=== PATIENT | female | born 1955 | race Caucasian/White ===

== ENCOUNTER 2017-11-20 07:00 | Day surgery (SDC) | payer BC, SELFPAY ==
[2017-11-17 11:07] LABS: Absolute Lymphocytes (CBC) 1.8 K/uL (0.7-4.9); Absolute Monocytes 0.6 K/uL (0.1-1.3); Absolute Neutrophil 3.9 K/uL (1.8-8.0); Basophils % 1.2 % (0-1.3); Eosinophils % 2.7 % (0-4.4); Hematocrit 39.9 % (36.0-45.0); Lymphocytes % 27.3 % (15.3-44.8); MCH 30.3 pg (27.0-35.0); MPV 7.9 fL (7.6-11.3); Monocytes % 9.6 % (3.3-12.3); RBC Red Blood Cell Count 4.43 M/uL (3.86-4.86)
[2017-11-17 11:13] LABS: Protime INR 1.13
[2017-11-17 11:26] LABS: Potassium 3.4 mEq/L (3.6-5.0)
--- NOTE | 2017-11-17 11:27 | RAD REPORT ---
EXAM DESCRIPTION: RAD - Chest Pa And Lat (2 Views) - 11/17/2017 10:31 am CLINICAL HISTORY: Coronary artery disease. COMPARISON: 06/20/2016 FINDINGS: The lungs are clear. The heart is mildly enlarged in size. No displaced fractures. Right a xillary kashif dissection clips. IMPRESSION: Mild cardiomegaly.
[2017-11-20] MEDS ORDERED: NA CHLORIDE 0.9% 500 ML ONE (08:39)
[2017-11-20] MEDS ORDERED: FENTANYL CITR 100 MCG/2 ML ONE (09:20)
[2017-11-20] MEDS ORDERED: MIDAZOLAM HCL 2 MG/2 ML INJ ONE ×2 (09:20→09:33)
[2017-11-20] MEDS ORDERED: ATROPINE SULF 1 MG/10 ML SYR IV ONE (09:20)
[2017-11-20] MEDS ORDERED: NA CHLORIDE 0.9% 0 ML ONE (09:20)
[2017-11-20 11:56] VITALS: O2SAT 98
[2017-11-20 14:06] VITALS: BP 122/60; TEMP 98.7
--- NOTE | 2017-11-20 19:58 | OP ---
Surgeon: Ayush Watson MD Procedures: Left heart catheterization, coronary and left ventricular angiography. Findings: The patient's coronary arteries are completely normal. Her left ventricular ejection frac tion is 30-35%. The left ventricle is dilated. Left ventricular end-diastolic pressure elevated at 25 mmHg. All the findings are consistent with a nonischemic cardiomyopathy, and our plan will be to continue medical therapy for congestive heart failure and have her get a defibrillator. Procedure In Detail: The patient was brought to the cardiac labor relations worker in a fasting state sedated with Versed and fentanyl. Right femoral approach was used as both breasts have been removed. Both arms were considered poor candidates for radial artery access. She was prepared and draped in the usual s terile fashion. Right femoral artery was identified with palpation. Tissues above the artery were a nesthetized with 1% lidocaine. The artery was entered using an 18-gauge needle. We used a 0.035 inc h diameter guidewire, modified Seldinger technique to put a 4-Emirati sheath. We used this to angiogr am left coronary with a JL-4, right coronary with a 3DRC, left ventricle with an angled pigtail. The re were no complications from the procedure. At the end of the procedure, an angiogram was done of t he right femoral artery. We made a decision to close the arteriotomy using a StarClose device. This was done successfully. Estimated Blood Loss: 10 cc. Design Editor: Jennie Gold. SONAM/ALLY Voice ID: [id number] Report ID: [id number]
== END 2017-11-20 13:55 | disposition home or self-care (01) ==
LOC: CCL 07:00
PROVIDERS: ATTEND Internal Medicine
PROC: 4A023N7 Measurement of Cardiac Sampling and Pressure, Left Heart, Percutaneous Approach (ICD-10-PCS; principal; 2017-11-20)
PROC: B201YZZ Plain Radiography of Multiple Coronary Arteries using Other Contrast (ICD-10-PCS; 2017-11-20)
PROC: B205YZZ Plain Radiography of Left Heart using Other Contrast (ICD-10-PCS; 2017-11-20)
DX: I42.8 Other cardiomyopathies (principal); I50.9 Heart failure, unspecified; I10 Essential (primary) hypertension; E78.2 Mixed hyperlipidemia; Z85.3 Personal history of malignant neoplasm of breast
CPT/HCPCS: 36415; 71046; 80048; 85025; 85610; 85730; 93458; C1893; J0583; J2250; J3010

== ENCOUNTER 2018-09-28 15:10 | Emergency (ER) | payer OTHER, SELFPAY ==
--- OUTSIDE RECORDS SUMMARY | 2018-09-28 15:15 | XMS REPORT | Continuity of Care Document ---
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/19 [place] [address] [place] WEAKNESS Active 05/27/[address] CVA Active 05/27/[address] LIFE FLIGHT Active 05/27/[address] Cellulitis Resolved Problem 05/31/2014 [facility] Brain tumor Resolved Problem 09/05/2018 [facility] Breast ca Resolved Problem 09/05/2018 [facility] Cerebral infarct Active Problem 09/05/2018 [facility] HTN (<span Resolved Problem 09/05/2018 [facility] ID="[id number]"> Medical Confirmed</span>) [place] HTN - Active Problem 09/05/2018 Hypertension [place] Hyperlipemia Resolved Problem 09/05/2018 [facility] Hyperlipidemia Active Problem 09/05/2018 [facility] Breast cancer Active Problem 09/05/2018 [facility] Mastectomy Resolved Problem 09/05/2018 [facility] Simple obesity Active Problem 09/05/2018 [facility] MALAISE AND Active [facility] Medications Medication Details Route Status Patient Ordering Order Source Instructions Provider Date Benicar 20 mg, 1 tab, No Longer [facility] Route: PO, Active 014 Medical Drug form: [place] TAB, Daily, Dosing Weight 89.091, kg, Start date: 05/29/14 9:00:00, Duration: 30 day, Stop date: 06/27/14 9:00:00 24 HR 25 mg, 1 tab, No Longer [facility] Metoprolol Route: PO, Active 014 Medical Tartrate 25 MG Drug form: [place] Extended ERTAB, Daily, Release Tablet Start date: [Toprol] 05/29/14 9:00:00, Duration: 30 day, Stop date: 06/27/14 9:00:00Notes: (Same as: Toprol XL) Do Not Crush exemestane 25 mg, 1 tab, No Longer [facility] Route: PO, Active 014 Medical Drug form: Center TAB, After Breakfast, Dosing Weight 88.636, kg, Start date: 05/29/14 8:50:00, Duration: 30 day, Stop date: 06/28/14 8:30:00Notes: (Same as: Aromasin) CHEMOTHERAPY Lipitor 40 mg, 1 tab, Inactive [facility] Route: PO, 014 Medical Drug form: Center TAB, Bedtime, Dosing Weight 89.091, kg, Start date: 05/28/14 21:00:00, Duration: 30 day, Stop date: 06/26/14 21:00:00Notes: (Same as: Lipitor) atorvastatin 40 mg=1 tab, Active [place] 40 mg oral PO, Bedtime, # 014 Medical tablet 90 tab, 3 Center Refill(s) Aspirin 81 MG 81 mg=1 tab, Active [facility] PO, Daily, # 014 Medical Tablet 100 tab, 2 Center Refill(s) heparin, 5,000 unit, 1 Inactive [facility] porcine mL, Route: 014 Medical SUB-Q, Drug Center form: INJ, Q8H, Dosing Weight 89.091, kg, Start date: 05/28/14 16:00:00, Duration: 30 day, Stop date: 06/27/14 8:00:00Notes: porcine heparin aspirin 81 mg, 1 tab, Inactive [facility] Route: PO, 014 Medical Drug form: Center ECTAB, Daily, Dosing Weight 89.091, kg, Priority: NOW, Start date: 05/28/14 10:51:00, Duration: 30 day, Stop date: 06/27/14 9:00:00Notes: Do not crush or chew. (Same As: Ecotrin) venlafaxine 37.5 mg, 1 Inactive [facility] tab, Route: 014 Medical PO, Drug form: Center TAB, Daily, Dosing Weight 88.636, kg, Start date: 05/28/14 9:00:00, Duration: 30 day, Stop date: 06/26/14 9:00:00Notes: (Same As: Effexor) Benicar 20 mg, 1 tab, Inactive [facility] Route: PO, 014 Medical Drug form: Center TAB, Daily, Dosing Weight 88.636, kg, Start date: 05/28/14 9:00:00, Duration: 30 day, Stop date: 06/26/14 9:00:00 24 HR 25 mg, 1 tab, Inactive [facility] Metoprolol Route: PO, 014 Medical Tartrate 25 MG Drug form: [place] Extended ERTAB, Daily, Release Tablet Start date: [Toprol] 05/28/14 9:00:00, Duration: 30 day, Stop date: 06/26/14 9:00:00Notes: (Same as: Toprol XL) Do Not Crush Saline Flush 10 ml, Route: Inactive [facility] 0.9% IVP, Drug 014 Medical Form: INJ, Center Dosing Weight 88.636, kg, Q12H, Start date: 05/28/14 9:00:00, Duration: 30 day, Stop date: 06/26/14 21:00:00Notes: (Same as: BD Posiflush) venlafaxine 37.5 mg=1 tab, Active [facility] 37.5 mg oral PO, Daily, 0 014 Medical tablet Refill(s) [place] Pravastatin 20 mg=1 tab, Inactive [facility] Sodium 20 MG PO, Daily, 0 014 Medical Oral Tablet Refill(s) [place] [Pravachol] 24 HR 25 mg=1 tab, Active [facility] Metoprolol PO, Daily, 0 014 Medical Tartrate 25 MG Refill(s) [place] Extended Release Tablet [Toprol] Olmesartan 20 mg=1 tab, Active [facility] medoxomil 20 PO, Daily, 0 014 Medical MG Oral Tablet Refill(s) [place] [Benicar] exemestane 25 25 mg=1 tab, Active [facility] mg oral tablet PO, Daily, 0 014 Medical Refill(s) Center Saline Flush 10 ml, Route: Inactive [facility] 0.9% IVP, Drug 014 Medical Form: INJ, Center Dosing Weight 88.636, kg, PRN, PRN Line Flush, Start date: 05/28/14 0:00:00, Duration: 30 day, Stop date: 06/26/14 23:59:00Notes: (Same as: BD Posiflush) Labetalol 10 mg, 2 mL, Inactive [facility] Route: IVP, 014 Medical Drug form: Center INJ, Q10Min, Dosing Weight 88.636, kg, PRN Hypertension, For SBP > 150mmHg, Start date: 05/28/14 0:00:00, Duration: 30 day, Stop date: 06/26/14 23:59:00 Iohexol 85 mL, Route: Inactive [facility] IVP, Drug 014 Medical Form: SOLN, Center Dosing Weight 88.636, kg, ONCALL, STAT, Start date: 05/27/14 21:28:00, Duration: 1 doses or times, Dose=2.2ml/kg, Max [id number] -- "To be infused by Radiology Staff ONLY"Special Instructions: Dose=2.2ml/kg, Max [id number] -- "To be infused by Radiology Staff ONLY" Saline Flush 10 mL, Route: No Longer [facility] 0.9% IVP, Drug Active 014 Medical Form: INJ, Center Dosing Weight 88.636, kg, PRN, PRN Line Flush, Start date: 05/27/14 20:05:00, Duration: 30 day, Stop date: 06/26/14 20:04:00Notes: (Same as: BD Posiflush) Allergies, Adverse Reactions, Alerts Substance Category Reaction Severity Reaction Status Date Comments Source type Reported Immunizations Immunization Date Given Site Status Last Updated Comments Source Results Order Name Results Value Reference Date Interpretation Comments Source Range HEMATOLOGY INR 1.08 0.85 - 03/04 1.17 [place] HEMATOLOGY PT 13.8 s 12.0 - / 14.7 [place] HEMATOLOGY PTT 29.3 s 22.9 - 03/ 35.8 [place] Biopsy bone Biopsy bone Patient Name: HERNAN TORRES DEEP 09/03 - [facility] : 1955; Age: 62 years Female MR: [id number] Read by: Daniel Bajwa MD Dictated Date/time: 09/03/18 11:43 Electronically Signed by: Daniel Bajwa MD 09/03/18 11:48 FINAL REPORT PROCEDURE: 1. CT-guided deep bone biopsy of the right ilium 2. Moderate sedation CLINICAL INFORMATION: History of breast cancer and skull metastasis, multiple spine and pelvic lesions COMPARISON: Magnetic resonance imaging spine on 08/28/2018 CONSENT: The procedure, risks, benefits and alternatives were discussed with the patient and written informed consent was obtained. A "time out" was performed per protocol prior to the procedure. TECHNIQUE: CT imaging performed at this location utilizes radiation dose optimization techniques which include one or more of the following: -Automated exposure control -Adjustment of the mA and/or kV according to patient size -Use of iterative reconstruction technique -Radiation dose: 527.02 mGy-cm calciner operator helper: Dr. Bajwa Preoperative diagnosis: History of breast cancer and skull metastasis, multiple spine and pelvic lesions Postoperative diagnosis: Same Estimated blood loss: Minimal Moderate sedation: I supervised moderate sedation during this procedure. The patient was continuously monitored by a nurse using automated blood pressure , electrocardiogram, and pulse oximetry. The mod erate sedation record is permanently stored in the hospital information system. The personal supervised moderate sedation time was 11 minutes. Medications administered: Versed 2 mg IV and Fentanyl 100 mcg IV. The patient was placed in a prone position on the CT table. Preprocedure CT was used to demarcate the right ilium. The right gluteal region was prepped and draped with sterile technique and the skin was anesthetized with 1% lidocaine. Under CT guidance, an 11-gauge bone biopsy needle was advanced into the right ilium. A 2 cm core was obtained. Again under CT guidance, an 11-gauge bone biopsy needle was advanced into the right ilium. A 2 cm core was again obtained. The needles were removed and sterile dressing applied. Postprocedure imaging demonstrated no immediate complication. Patient tolerated the procedure well and transferred to the recovery room in stable condition. IMPRESSION: Successful CT-guided deep bone biopsy of the right ilium. Upon review of the MRI spine from 08/28/2018, multiple lesions were noted within the thoracolumbar spine as well as within the pelvis. The right ilium was specifically chosen given the degree of involvement and minimal risk. SL: [id number] LIPIDS LDL 119 mg/dL <=99 mg/dL 05/28 (Calculated) [facility] LIPIDS VLDL 56 05/28 [facility] LIPIDS Chol 202 mg/dL <=199 05/28 mg/dL [facility] LIPIDS HDL 27 mg/dL >=61 mg/dL 05/28 [facility] LIPIDS Trig 278 mg/dL <=149 05/28 mg/dL [facility] LIPIDS CHD Risk 7.48 3.90 - 05/28 5.80 [facility] SPECIAL Hgb A1C 6.7 % <=5.6 % 05/28 [facility] CHEMISTRY [facility] HEMATOLOGY WBC 5.7 K/CMM 3.7 - 10.4 05/28 [facility] HEMATOLOGY MPV 6.8 fL 7.4 - 10.4 05/28 [facility] HEMATOLOGY MCV 88.8 fL 80.0 - 05/28 98.0 [facility] HEMATOLOGY Platelet 274 K/CMM 133 - 450 05/28 [facility] HEMATOLOGY RDW 13.5 % 11. - 05/28 [place] 14.5 [facility] HEMATOLOGY MCHC 33.2 g/dL 32.0 - 05/28 [place] 36.0 /2013 [facility] HEMATOLOGY MCH 29.5 pg 27.0 - 05/28 [place] 31.0 [facility] HEMATOLOGY RBC 3.18 M/CMM 4.20 - 05/28 [place] 5.40 /2013 [facility] HEMATOLOGY Hct 28.3 % 36.0 - 05/28 [place] 48.0 [facility] HEMATOLOGY Hgb 9.4 g/dL 12.0 - 05/28 [place] 16.0 [facility] HEMATOLOGY Monocytes # 0.6 K/CMM 0.0 - 0.8 05/28 [facility] HEMATOLOGY Eosinophils 0.3 K/CMM 0.0 - 0.5 05/28 [place] # /2013 [facility] HEMATOLOGY Lymphocytes 1.7 K/CMM 1.0 - 5.5 05/28 [place] # /2013 [facility] HEMATOLOGY Segs-Bands # 3.1 K/CMM 1.5 - 8.1 05/28 [facility] HEMATOLOGY Basophils # 0.1 K/CMM 0.0 - 0.2 05/28 [facility] HEMATOLOGY Segs 54.5 % 45.0 - 05/28 [place] 75.0 [facility] HEMATOLOGY Basophils 0.9 % 0.0 - 1.0 05/28 [facility] HEMATOLOGY Monocytes 10.4 % 2.0 - 12.0 05/28 [facility] HEMATOLOGY Eosinophils 4.7 % 0.0 - 4.0 05/28 [facility] HEMATOLOGY Lymphocytes 29.5 % 20.0 - 05/28 [place] 40.0 [facility] URINE AND UA Color Yellow Yellow 05/28 [facility] *NA* [place] (05/28/14 4:23 AM) URINE AND UA Glucose Negative Negative 05/28 [facility] mg/dL mg/dL [facility] URINE AND UA Protein 10 mg/dL Negative 05/28 [facility] mg/dL [facility] URINE AND UA Ketones Negative Negative 05/28 [facility] mg/dL mg/dL [facility] URINE AND UA pH 6.5 5.0 - 8.0 05/28 [facility] URINE AND UA Turbidity Clear Clear 05/28 [facility] (05/28/14 4:23 AM) [place] URINE AND UA Nitrite Negative Negative 05/28 [facility] (05/28/14 4:23 AM) [place] URINE AND UA Bili Negative Negative 05/28 [facility] *NA* [place] (05/28/14 4:23 AM) URINE AND UA Blood Negative Negative 05/28 [facility] (05/28/14 4:23 AM) [place] URINE AND UA Leuk Est Negative Negative 05/28 [facility] (05/28/14 4:23 AM) [place] URINE AND UA Sq Epi Occasional Few /LPF 05/28 [facility] /LPF [facility] URINE AND UA WBC null 0 - 5 05/28 [facility] URINE AND UA Mucus Few /LPF None Seen 05/28 [facility] /LPF [facility] URINE AND UA RBC null 0 - 2 05/28 [facility] URINE AND UA Spec Grav >=1.050 <=1.030 05/28 [facility] Medical *ABN* Center (05/28/14 4:23 AM) URINE AND UA <=1.0 0.1 - 1.0 05/28 [facility] STOOL Urobilinogen mg/dL /2013 [facility] Brain wo Brain wo EXAM: CT HEAD WITHOUT CONTRAST 05/28 - [facility] contrast CT contrast CT /2013 - [facility] DATE: May 28, 2014 04:00:42 AM Read by: Alexander Santos MD Dictated Date/time: 05/28/14 08:58 Electronically Signed by: Alexander Santos MD 05/28/14 09:12 FINAL REPORT INDICATION: Weakness COMPARISON: Prior CT scan of the head dated 05/27/2014 DISCUSSION: Stable changes of prior left frontal craniectomy. Stable appearance of the left frontal periventricular white matter calcified granuloma. No definite new parenchymal abnormality or new hemorrhage is identified. Ventricles are stable in size. No evidence of mass effect on midline shift. Basal cisterns are preserved. No evidence of downward herniation. Remainder of the exam is unchanged. Calvarium is unremarkable except craniectomy changes. The visible paranasal sinuses and mastoids are clear. Both orbits grossly appear unremarkable. IMPRESSION: 1. Overall stable exam since prior study. No definite new parenchyma abnormality or new hemorrhage is seen. CHEM PANEL eGFR 81 05/28 1Result Comment: The eGFR is calculated using the CKD-EPI formula. In most young, healthy individuals the eGFR will be >90 mL/ min/1.73m2. The eGFR declines with age. An eGFR of 60-89 may be normal in [facility] mL/min/1.7 /2013 some populations, particularly the elderly, for whom the CKD-EPI formula has not been extensively validated. Use of the eGFR is not recommended in the following populations: [address] Individuals with unstable creatinine concentrations, including patients and those with serious co-morbid conditions. Patients with extremes in muscle mass or diet. The data above are obtained from the National Kidney Disease Education Program (NKDEP) which additionally recommends that when the eGFR is used in patients with extremes of body mass index for purposes of drug dosing, the eGFR should be multiplied by the estimated BMI. CHEM PANEL Chloride Lvl 104 meq/L 95 - 109 05/28 [facility] CHEM PANEL Potassium 4.4 meq/L 3.5 - 5.1 05/28 [facility] Lvl [facility] CHEM PANEL Calcium Lvl 8.7 mg/dL 8.5 - 10.5 05/28 [facility] CHEM PANEL CO2 30 meq/L 24 - 32 05/28 [facility] CHEM PANEL AGAP 13.4 meq/L 10.0 - 05/28 20.0 [facility] CHEM PANEL B/C Ratio 25 6 - 25 05/28 [facility] CHEM PANEL Glucose Lvl 136 mg/dL 70 - 99 05/28 2Interpretive Data: Adult reference range values reflect the clinical guidelines of the [employer]. [facility] CHEM PANEL Sodium Lvl 143 meq/L 135 - 145 05/28 [facility] CHEM PANEL Creatinine 0.8 mg/dL 0.5 - 1.4 05/28 [facility] [place] [facility] CHEM PANEL BUN 20 mg/dL 7 - 22 05/28 [facility] CHEM PANEL AST 31 unit/L 0 - 37 05/28 [facility] CHEM PANEL ALT 17 unit/L 0 - 65 05/28 [facility] CHEM PANEL Albumin Lvl 3.5 g/dL 3.5 - 5.0 05/28 [facility] CHEM PANEL Total 6.6 g/dL 6.4 - 8.4 05/28 [facility] CHEM PANEL Bili Total 0.3 mg/dL 0.2 - 1.3 05/28 [facility] CHEM PANEL Alk Phos 88 unit/L 39 - 136 05/28 [facility] CHEM PANEL Globulin 3.1 g/dL 2.0 - 4.0 05/28 [facility] CHEM PANEL A/G Ratio 1.1 0.7 - 1.6 05/28 [facility] CARDIAC Total CK 219 unit/L 12 - 191 05/28 [facility] ENZYMES [facility] CARDIAC CK MB null 0.5 - 3.6 05/28 ENZYMES [facility] CARDIAC Troponin-I null 0.00 - 05/28 [facility] ENZYMES 0.40 [facility] CARDIAC CK-MB INDEX null 0.0 - 2.5 05/28 [facility] HEMATOLOGY PTT 32.8 s 22.9 - 05/28 4Interpretive [place] 35.8 /2013 Data: [facility] Range: 57 - 92 [facility] HEMATOLOGY Platelet 354 K/CMM 133 - 450 05/28 [facility] HEMATOLOGY RDW 12.6 % 11.5 - 05/28 14.5 [facility] HEMATOLOGY MPV 7.1 fL 7.4 - 10.4 05/28 [facility] HEMATOLOGY RBC 4.09 M/CMM 4.20 - 05/28 5.40 /2013 [facility] HEMATOLOGY Hgb 12.0 g/dL 12.0 - 05/28 16.0 [facility] HEMATOLOGY WBC 9.1 K/CMM 3.7 - 10.4 05/28 [facility] HEMATOLOGY Hct 34.6 % 36.0 - 05/28 48.0 [facility] HEMATOLOGY MCH 29.2 pg 27.0 - 05/28 31.0 [facility] HEMATOLOGY MCHC 34.6 g/dL 32.0 - 05/28 36.0 [facility] HEMATOLOGY MCV 84.6 fL 80.0 - 05/28 98.0 [facility] HEMATOLOGY INR 1.08 0.85 - 05/28 3Interpretive Data: RECOMMENDED RANGES FOR PROTIME INR: [facility] . 2.0-3.0 for most medical and surgical thromboembolic states. Medical 2.5-3.5 for artificial heart valves and recurrent embolism. Center INR SHOULD BE USED ONLY FOR PATIENTS ON STABLE ANTICOAGULANT THERAPY. HEMATOLOGY PT 14.1 s 12.0 - 05/28 14.7 [facility] HEMATOLOGY Basophils # 0.1 K/CMM 0.0 - 0.2 05/28 [facility] HEMATOLOGY Eosinophils 0.3 K/CMM 0.0 - 0.5 05/28 [facility] HEMATOLOGY Basophils 1.3 % 0.0 - 1.0 05/28 [facility] HEMATOLOGY Segs-Bands # 6.0 K/CMM 1.5 - 8.1 05/28 [facility] HEMATOLOGY Lymphocytes 2.0 K/CMM 1.0 - 5.5 05/28 [facility] HEMATOLOGY Monocytes # 0.7 K/CMM 0.0 - 0.8 05/28 [facility] HEMATOLOGY Plt Morph Normal 05/28 [facility] Center HEMATOLOGY RBC Morph Normal 05/28 [facility] (05/27/14 8:00 PM) Center HEMATOLOGY Lymphocytes 22.4 % 20.0 - 05/28 [facility] 40.0 [facility] HEMATOLOGY Segs 65.7 % 45.0 - 05/28 [facility] 75.0 [facility] HEMATOLOGY Monocytes 7.4 % 2.0 - 12.0 05/28 [facility] HEMATOLOGY Eosinophils 3.2 % 0.0 - 4.0 05/28 [facility] Brain w/wo Brain w/wo MRI OF THE BRAIN WITHOUT AND WITH CONTRAST 05/27 [facility] contrast contrast MRI /2013 - [facility] DATE: 05/27/2014 at 10:18 p.m. Read by: Jozef Cantu MD Dictated Date/time: 05/28/14 03:59 Electronically Signed by: Jozef Cantu MD 05/28/14 04:08 FINAL REPORT Comparison studies: CT brain, and CTA head and neck 04/26/2014 at 9:42 p.m. CLINICAL INFORMATION: Hemiparesis. Technique: Pre- and postcontrast multiplanar MR imaging was performed utilizing T1 and T2 weighting. FINDINGS: The postoperative changes of left frontal craniotomy are again noted. A metallic flap is again noted covering the bony defect and creating magnetic susceptibility artifact. There is no restricted diffusion to suggest acute infarction. There is enhancement of the may be of the bilateral frontal lobes more prominent on the left which is likely a postoperative change rather than representing metastatic disease. There is no abnormal enha ncement to suggest intracranial metastasis. The region of blush noted on CTA is not redemonstrated likely does not represent metastasis. Magnetic susceptibility artifact is noted with the left frontal region corresponding to the calcified lesion noted on CT scanning consistent with a granuloma of calcified nodular cysticercosis. FLAIR imaging and Strates some hyperdensity within the left frontal sulci likely resenting trace subarachnoid hemorrhage. A tiny amount of subdural hemorrhage is noted along the left side of the falx. IMPRESSION: 1. No evidence of acute infarction. 2. Postoperative changes of left frontal craniotomy and metastasis resection. No residual recurrent metastatic disease is noted. 3. Calcified granuloma of calcified nodular cysticercosis within the left frontal lobe. Brain Brain Stroke CT SCAN OF THE BRAIN 05/27 - [facility] Stroke wo wo contrast /2013 - [facility] contrast CT CT Center DATE: 05/27/2014 at 9:42 p.m. Read by: Jozef Cantu MD Dictated Date/time: 05/28/14 03:17 Electronically Signed by: Jozef Cantu MD 05/28/14 03:21 FINAL REPORT Comparison studies: CTA performed at the same time. CLINICAL INFORMATION: Focal neurological deficit. Right-sided weakness, status post left craniotomy and breast cancer brain metastasis resection TECHNIQUE: Routine axial images of the brain were obtained in the unenhanced mode. Sagittal and coronal reformatted images were also provided. FINDINGS: There is an approximately 6.3 mm calcified mass within the left frontal lobe likely representing a granuloma of calcified nodular cysticercosis. Posterior to the mass is a 4 mm hyperdensity demonstratin g blush on CTA which may represent a postoperative pseudoaneurysm versus a vascular malformation. Metastasis is possible but less likely. There are no mass lesions or extra-axial collections. The postoperative changes of left frontal craniotomy noted with the bony defect covered with a metallic plate. IMPRESSION: 1. 4 mm hyperdensity with the left frontal lobe corresponding to the blush noted on CTA likely representing a vascular malformation or varix. Postoperative pseudoaneurysm or metastasis are possible but less likely. 2. 6.3 mm calcified granuloma within the left frontal lobe consistent with calcified nodular cysticercosis. 3. Postoperative changes of left frontal craniotomy. Brain/Neck Brain/Neck CT ANGIOGRAM OF THE HEAD AND NECK 05/27 - [facility] CTA CTA /2013 - [facility] DATE: 05/27/2014 at 9:42 p.m. Read by: Jozef Cantu MD Dictated Date/time: 05/28/14 02:46 Electronically Signed by: Jozef Cantu MD 05/28/14 03:17 FINAL REPORT CLINICAL INFORMATION: Breast cancer, status post brain metastasis resection , weakness, stroke. TECHNIQUE: Axial images were obtained from the vertex through the upper thorax at 1.5 mm intervals in the enhanced mode. 3-D maximum intensity projection, MIP images were also created. FINDINGS: There is normal contrast-enhancement of the aortic arch and proximal great vessels. The right innominate, left common carotid, and left subclavian arteries arise in normal anatomic configuration. There are no proximal stenoses. Calcified atherosclerotic plaque is noted within the wall of the proximal right internal carotid artery without stenosis. There is normal contrast- enhancement of the bilateral common, internal, and exte rnal carotid arteries. There is no carotid bifurcation stenosis. There is normal contrast-enhancement of the bilateral vertebral arteries. Intracranially there is normal contrast-enhancement of the bilateral intracranial internal carotid arteries, the bilateral distal vertebral arteries , and the basilar artery. There is normal contrast enh ancement of the the bilateral anterior, middle, and posterior cerebral arteries. And there is a origin of the right posterior cerebral artery arising directly from the right internal carotid arter y. There is normal contrast-enhancement of the superior cerebellar, and posterior inferior cerebellar arteries bilaterally. Within the left frontal lobe there is an approximately 4 mm in diameter blush of enhancement fed by small perforating feeders. This may represent a postoperative pseudoaneurysm versus a varix, or other vascular malformations such as capillary telangiectasia. A metastasis is possible but less likely. There is an approximately 6.3 mm diameter calcified mass and the left frontal lobe anterior to the caud ate head and the vascular blush most likely representing a granuloma of calcified nodular cysticercosis. There is no surrounding edema.. The postoperative changes of left frontal craniotomy are noted with a metallic plate covering the operative defect. By history a metastasis has been resected. IMPRESSION: 1. Mild atherosclerotic plaque of the proximal right internal carotid artery without stenosis. 2. 4 mm blush of enhancement within the left frontal lobe postoperative pseudoaneurysm versus capillary telangiectasia were less likely metastasis. 3. 6.3 calcified nodule within the left frontal lobe likely representing a granuloma of calcified nodular cysticercosis. 4. Postoperative changes of left frontal craniotomy and removal of a metastatic lesion. Chest 1view Chest 1view EXAM: XR CHEST 1 VIEW 05/27 [facility] This report was dictated by a Chart Snatcher/Fellow. I have personally reviewed the images as Center well as the Resident's interpretation and agree with the findings. DATE: 05/27/2014 at 2016 hours Read by: Mickey Rajan MD Resident: Mickey Rajan MD Dictated Date/time: 05/27/14 20:46 Electronically Signed by: Walter Hoffmann MD 05/27/14 23:14 FINAL REPORT INDICATION: Focal neurological deficit COMPARISON: Chest radiograph from outside hospital on 05/27/2014 TECHNIQUE: Single AP view of the chest DISCUSSION: The cardiomediastinal silhouette is normal for technique. The lungs are well aerated and clear. There is no pleural effusion or pneumothorax. No acute skeletal abnormality is identified. S urgical clips from a prior right axillary lymph node dissection are seen. IMPRESSION: No acute cardiopulmonary abnormality. Vital Signs Vital Sign Value Date Comments Source Height 162.56 cm 09/03/2018 [facility] BMI Calculated 29.41 09/03/2018 [facility] Weight 77.727 09/03/2018 [facility] Diastolic (mm Hg) 77 05/28/2014 [facility] Systolic (mm Hg) 149 05/28/2014 [facility] Respitory Rate 20 05/28/2014 [facility] Respitory Rate 16 05/28/2014 [facility] Systolic (mm Hg) 141 05/28/2014 [facility] Diastolic (mm Hg) 65 05/28/2014 [facility] Respitory Rate 17 05/28/2014 [facility] Diastolic (mm Hg) 91 05/28/2014 [facility] Systolic (mm Hg) 154 05/28/2014 [facility] Weight 89.091 05/28/2014 [facility] BMI Calculated 33.71 05/28/2014 [facility] Height 162.56 cm 05/28/2014 [facility] Temperature Oral (F) 98.1 F 05/28/2014 [facility] Heart Rate 74 05/28/2014 [facility] Weight 88.636 05/28/2014 [facility] BMI Calculated 33.54 05/28/2014 [facility] Height 162.56 cm 05/28/2014 [facility] Temperature Oral (F) 97.9 F 05/28/2014 [facility] Heart Rate 95 05/28/2014 [facility] Weight 88.636 05/28/2014 [facility] Height 162.56 cm 05/28/2014 [facility] BMI Calculated 33.54 05/28/2014 [facility] Encounters Location Location Encounter Encounter Reason Attending ADM DC Status Source Details Type Number For Provider Date Date Visit [facility] [id number] Henr[facility] 05/28 05/29 Leonor Olvera Luisito /2013 [facility] [id number] Any 09/03 09/04 DAV Vides /2018 [facility] Procedures Procedure Code Date Perfomer Comments Source Brain excision [id number] [facility] Craniotomy [id number] [facility] Mastectomy<sup>1< [id number] 1bilat [facility] /sup> [facility] Brain excision [id number] [facility] Craniotomy [id number] [facility] Mastectomy<sup>1< [id number] bilat [facility] /sup>
[2018-09-28 16:49] LABS: Potassium 3.5 mmol/L (3.5-5.1)
--- NOTE | 2018-09-28 17:10 | EDPHYS ---
Physician Documentation [facility] Name: Pauline Campoverde Age: 63 yrs Sex: Female : 1955 Arrival Date: 09/28/2018 Time: 15:13 Bed 19 Private MD: Vijay Rivera R ED Physician Job Choe HPI: 09/28 17:05 This 63 yrs old Female presents to ER via Ambulatory with complaints of kb Muscle Spasm. 17:05 The patient presents with spasm, tightness, muscle spasm. The complaints affect the kb right leg. Context: The problem was sustained at home, resulted from an unknown cause, possible side effect of medication, the patient can fully bear weight, the patient is able to ambulate. Onset: The symptoms/episode began/occurred 1 hour(s) ago. Modifying factors: The symptoms are alleviated by nothing. the symptoms are aggravated by nothing. Associated signs and symptoms: The patient has no apparent associated signs or symptoms. Treatment prior to arrival includes: no previous treatment. Severity of symptoms: At their worst the symptoms were moderate, in the emergency department the symptoms are unchanged. The patient has not experienced similar symptoms in the past. The patient has not recently seen a physician. Pt reports muscle spasm that started one hour plane captain. States the spasm stopped just plane captain. Dr Vides called before pt arrived. Gave pt an injection yesterday that can decreased potassium and calcium so she wants labs checked to make sure those are normal. . Historical: - Allergies: 15:51 No Known Allergies; iw - PMHx: 15:50 bone cancer; breast cancer; Cellulitis; chemo \T\ radiation; CHF; High Cholesterol; iw Hypertension; lymphedema; - PSHx: 15:50 Mastectomy Bilateral; Tumor Removal from Skull; iw - Immunization history:: Adult Immunizations unknown. - Ebola Screening: : Patient negative for fever greater than or equal to 101.5 degrees Fahrenheit, and additional compatible Ebola Virus Disease symptoms Patient denies exposure to infectious person Patient denies travel to an Ebola-affected area in the 21 days before illness onset No symptoms or risks identified at this time. - Social history:: Smoking status: Patient/guardian denies using tobacco. ROS: 16:59 Constitutional: Negative for fever, chills, and weight loss, Cardiovascular: Negative kb for chest pain, palpitations, and edema, Respiratory: Negative for shortness of breath, cough, wheezing, and pleuritic chest pain, Abdomen/GI: Negative for abdominal pain, nausea, vomiting, diarrhea, and constipation, Skin: Negative for injury, rash, and discoloration, Neuro: Negative for headache, weakness, numbness, tingling, and seizure. 16:59 MS/extremity: Positive for muscle spasm to right lower extremity, resolved upon arrival. Exam: 17:05 Constitutional: This is a well developed, well nourished patient who is awake, alert, kb and in no acute distress. Head/Face: Normocephalic, atraumatic. Chest/axilla: Normal chest wall appearance and motion. Nontender with no deformity. No lesions are appreciated. Cardiovascular: Regular rate and rhythm with a normal S1 and S2. No gallops, murmurs, or rubs. Normal PMI, no JVD. No pulse deficits. Respiratory: Lungs have equal breath sounds bilaterally, clear to auscultation and percussion. No rales, rhonchi or wheezes noted. No increased work of breathing, no retractions or nasal flaring. Abdomen/GI: Soft, non-tender, with normal bowel sounds. No distension or tympany. No guarding or rebound. No evidence of tenderness throughout. Skin: Warm, dry with normal turgor. Normal color with no rashes, no lesions, and no evidence of cellulitis. MS/ Extremity: Pulses equal, no cyanosis. Neurovascular intact. Full, normal range of motion. Neuro: Awake and alert, GCS 15, oriented to person, place, time, and situation. Cranial nerves II-XII grossly intact. Motor strength 5/5 in all extremities. Sensory grossly intact. Cerebellar exam normal. Normal gait. Vital Signs: 15:51 BP 133 / 69; Pulse 82; Resp 16; Temp 98.2; Pulse Ox 99% on R/A; iw 16:45 BP 130 / 65; Pulse 80; Resp 16 S; Pulse Ox 100% on R/A; jl7 MDM: 15:31 Patient medically screened. kb 16:58 Data reviewed: vital signs, nurses notes. Data interpreted: Pulse oximetry: on room air kb is 99 %. Interpretation: normal. Counseling: I had a detailed discussion with the patient and/or guardian regarding: the historical points, exam findings, and any diagnostic results supporting the discharge/admit diagnosis, lab results, the need for outpatient follow up, a family practitioner, to return to the emergency department if symptoms worsen or persist or if there are any questions or concerns that arise at home. Physician consultation: [place], results reviewed. . 09/28 15:31 Order name: Basic Metabolic Panel kb 09/28 15:32 Order name: Basic Metabolic Panel; Complete Time: 16:50 EDCO 09/28 15:31 Order name: IV Start; Complete Time: 16:12 kb Administered Medications: 17:20 Drug: Calcium Carbonate 500 mg Route: PO; jl7 17:20 Follow up: Response: Medication administered at discharge. jl7 17:20 Drug: Potassium Chloride 40 mEq Route: PO; jl7 17:21 Follow up: Response: Medication administered at discharge. jl7 Disposition: 17:59 Co-signature as Attending Physician, Job Choe MD. rn Disposition: 09/28/18 17:09 Discharged to Home. Impression: Muscle spasm. - Condition is Stable. - Discharge Instructions: Muscle Cramps and Spasms. - Prescriptions for Cyclobenzaprine 10 mg Oral Tablet - take 1 tablet by ORAL route every 8 hours As needed; 21 tablet. - Medication Reconciliation Form, Thank You Letter, Antibiotic Education, Prescription Opioid Use form. - Follow up: Emergency Department; When: As needed; Reason: Worsening of condition. Follow up: Private Physician; When: 2 - 3 days; Reason: Recheck today's complaints, Continuance of care, Re-evaluation by your physician. Signatures: Dispatcher [employer] [facility] Annetta Kelsey, CARGO AGENT-C CARGO AGENT-Ckb Dawna Parmar RN RN iw Nieto, Roman, MD MD rn Leal, Jahala, RN RN jl7 Corrections: (The following items were deleted from the chart) 17:25 17:09 09/28/2018 17:09 Discharged to Home. Impression: Muscle spasm. Condition is jl7 Stable. Forms are Medication Reconciliation Form, Thank You Letter, Antibiotic Education, Prescription Opioid Use. Follow up: Emergency Department; When: As needed; Reason: Worsening of condition. Follow up: Private Physician; When: 2 - 3 days; Reason: Recheck today's complaints, Continuance of care, Re-evaluation by your physician. kb
--- NOTE | 2018-09-28 17:10 | ER ---
Nurse's Notes [facility] Name: Pauline Campoverde Age: 63 yrs Sex: Female : 1955 Arrival Date: 09/28/2018 Time: 15:13 Bed 19 Private MD: Vijay Rivera R Diagnosis: Muscle spasm Presentation: 09/28 15:45 Presenting complaint: Patient states: had a bone shot (xgeva) yesterday, hx of breast iw cancer, bone cancer, side effect of shot is decreased potassium and calcium levels, pt c/o numbness of both feet, shakiness to right foot, right hand and arm numbness, was sent by Dr. Welsh. Transition of care: patient was not received from another setting of care. Onset of symptoms was September 27, 2018. Risk Assessment: Do you want to hurt yourself or someone else? Patient reports no desire to harm self or others. Initial Sepsis Screen: Does the patient meet any 2 criteria? No. Patient's initial sepsis screen is negative. Does the patient have a suspected source of infection? No. Patient's initial sepsis screen is negative. Care prior to arrival: None. 15:45 Method Of Arrival: Ambulatory iw 15:45 Acuity: OMAR 3 iw Historical: - Allergies: 15:51 No Known Allergies; iw - PMHx: 15:50 bone cancer; breast cancer; Cellulitis; chemo \T\ radiation; CHF; High Cholesterol; iw Hypertension; lymphedema; - PSHx: 15:50 Mastectomy Bilateral; Tumor Removal from Skull; iw - Immunization history:: Adult Immunizations unknown. - Ebola Screening: : Patient negative for fever greater than or equal to 101.5 degrees Fahrenheit, and additional compatible Ebola Virus Disease symptoms Patient denies exposure to infectious person Patient denies travel to an Ebola-affected area in the 21 days before illness onset No symptoms or risks identified at this time. - Social history:: Smoking status: Patient/guardian denies using tobacco. Screenin:00 Abuse screen: Denies threats or abuse. Denies injuries from another. Nutritional jl7 screening: No deficits noted. Tuberculosis screening: No symptoms or risk factors identified. Fall Risk None identified. Assessment: 16:00 General: Appears in no apparent distress. uncomfortable, Behavior is calm, cooperative, jl7 appropriate for age. Pain: Complains of pain in right leg Pain currently is 8 out of 10 on a pain scale. Neuro: Level of Consciousness is awake, alert, obeys commands, Oriented to person, place, time, situation. Cardiovascular: Patient's skin is warm and dry. Respiratory: Airway is patent Respiratory effort is even, unlabored, Respiratory pattern is regular, symmetrical. Derm: Skin is pink, warm \T\ dry. Musculoskeletal: Range of motion: intact in all extremities. 17:00 Reassessment: Patient appears in no apparent distress at this time. No changes from jl7 previously documented assessment. Patient and/or family updated on plan of care and expected duration. Pain level reassessed. Patient is alert, oriented x 3, equal unlabored respirations, skin warm/dry/pink. Vital Signs: 15:51 BP 133 / 69; Pulse 82; Resp 16; Temp 98.2; Pulse Ox 99% on R/A; iw 16:45 BP 130 / 65; Pulse 80; Resp 16 S; Pulse Ox 100% on R/A; jl7 ED Course: 15:13 Patient arrived in ED. mr 15:14 Vijay Rivera MD is Private Physician. mr 15:31 [facility] Kelsey FNP-C [facility] kb 15:31 Job Choe MD is Attending Physician. kb 15:49 Triage completed. iw 15:52 Arm band placed on. iw 15:55 Jaspal Schaffer, KARAN is Primary Nurse. jl7 16:00 Patient has correct armband on for positive identification. Bed in low position. Call jl7 light in reach. Side rails up X 1. 16:13 Initial lab(s) drawn, by me, sent to lab. Inserted saline lock: 22 gauge in left ms antecubital area, using aseptic technique. Blood collected. 17:24 No provider procedures requiring assistance completed. IV discontinued, intact, jl7 bleeding controlled, No redness/swelling at site. Pressure dressing applied. Administered Medications: 17:20 Drug: Calcium Carbonate 500 mg Route: PO; jl7 17:20 Follow up: Response: Medication administered at discharge. jl7 17:20 Drug: Potassium Chloride 40 mEq Route: PO; jl7 17:21 Follow up: Response: Medication administered at discharge. jl7 Outcome: 17:09 Discharge ordered by . kb 17:24 Discharged to home ambulatory. jl7 17:24 Condition: stable 17:24 Discharge instructions given to patient, Instructed on discharge instructions, follow up and referral plans. medication usage, Demonstrated understanding of instructions, follow-up care, medications, Prescriptions given X 1. 17:25 Patient left the ED. jl7 Signatures: Annetta Kelsey, EMERGENCY VETERINARY TECHNICIAN-C EMERGENCY VETERINARY TECHNICIAN-Lurdes Gomez mr Dawna Parmar RN RN iw Solis, Maria ms Leal, Jahala RN RN jl7 Corrections: (The following items were deleted from the chart) 15:49 15:39 Presenting complaint: iw iw
[2018-09-28] MEDS ORDERED: POTASSIUM CL SA 10 MEQ TAB PO ONE (17:15)
[2018-09-28] MEDS ORDERED: CALCIUM CARBONATE 500 MG TAB PO ONE (18:00)
[2018-09-28 19:06] VITALS: TEMP 98.2
[2018-09-28 19:08] VITALS: BP 130/65; O2SAT 100
== END 2018-09-28 17:25 | disposition home or self-care (01) ==
LOC: ER 15:10
DX: M62.838 Other muscle spasm (principal); I10 Essential (primary) hypertension; Z85.3 Personal history of malignant neoplasm of breast; Z85.830 Personal history of malignant neoplasm of bone; Z90.13 Acquired absence of bilateral breasts and nipples
CPT/HCPCS: 36415; 80048; 99284

== ENCOUNTER 2021-09-01 12:22 | Emergency (ER) | payer BC ==
--- OUTSIDE RECORDS SUMMARY | 2021-09-01 12:24 | XMS REPORT | Continuity of Care Document ---
:1955 Author Organization [facility] t Address [address] [place] [address] Care Team Providers Name Role Phone Radiology Attending Clinician Unavailable RADIOLOGY Attending Clinician Unavailable Only, Test Attending Clinician Unavailable Jose POWERS Attending Clinician JOSE Attending Clinician Unavailable Payers Payer Name Policy Type Policy Number Effective Date Expiration Date S ource Problems This patient has no known problems. Allergies, Adverse Reactions, Alerts Allergy Allergy Status Severity Reaction(s) Onset Inactive Treating Comm ents Source Name Type Date Date Clinician NO KNOWN Drug Active Univers ALLERGIE Class ity of S [facility] Social History Social Habit Start Date Stop Date Quantity Comments Source [facility] to SARS-CoV-2 Not sure Un [facility] (event) [facility] [place] Smoking Status Start Date Stop Date Source Unknown if ever smoked [facility] Medications Ordered Filled Start Stop Current Ordering Indication Dosage Frequency Signature Comments Components Source Medication Medication Date Date Medication? Clinician (SIG) Name Name iohexol 120mL 120 mL, Unive rs (OMNIPAQUE 07-14 Intravenou it y of 350 21:45: 21:44 s, ONCE, 1 [place] BULK-150 00 :00 dose, Tue Medica l mL) 07/14/20 at Branch injection 1545, 120 mL Routine Procedures Procedure Date / Time Performed Performing Clinician [facility] e CONSENT/REFUSAL FOR 2020-07-14 20:04:50 [facility] AND Name [facility] TREATMENT ASSIGNMENT OF BENEFITS 2020-07-14 20:04:26 Doctor Unassigned, No [facility] Branch Encounters Start End Encounter Admission Attending Care Care Encounter Source Date/Time Date/Time Type Type Clinicians Facility Department ID 2020-07-14 2020-07-14 [facility] Radiology [facility] [id number] 14:05:19 23:59:00 Encounter [place] [id number] [place] [id number] [place] [id number] [facility] 2020-07-14 2020-07-14 [facility] Radiology [facility] [id number] Univers 14:05:19 23:59:00 Encounter [place] [id number] ity of [place] [id number] [facility] [id number] [address] 2020-07-14 2020-07-14 Outpatient R RADIOLOGY [facility] 4A-20 Univers 15:30:00 15:30:00 [id number] ity [facility] 2020-07-14 2020-07-14 [facility] Radiology [facility] [id number] 14:04:35 14:04:35 Encounter [place] [id number] [place] [id number] [place] [id number] [facility] 2020-07-14 2020-07-14 [facility] Radiology [facility] [id number] Univers 14:04:35 14:04:35 Encounter [place] [id number] ity of [place] [id number] [facility] [id number] [address] 2020-07-14 2020-07-14 Outpatient R RADIOLOGY [facility] [id number] Univers 00:00:00 00:00:00 ity of [facility] 2020-07-07 2020-07-07 Outpatient R RADIOLOGY [facility] 4A-20 Univers 09:00:00 09:00:00 [id number] ity of [facility] 2020-07-07 2020-07-07 Outpatient R RADIOLOGY [facility] [id number] Univers 00:00:00 00:00:00 ity of [facility] 2020-06-18 2020-06-18 Laboratory Only, [facility] [id number] 14:23:12 14:38:12 Only Test Mary Anne [id number] [place] [id number] [place] [id number] [facility] 2020-06-18 2020-06-18 Laboratory Only, [facility] Test [facility] [id number] [facility] 14:23:12 14:38:12 Only Jesús White [id number] peter [facility] [id number] [facility] [id number] [address] 2020-06-18 2020-06-18 Outpatient R JOSE [facility] [id number] Univers 14:15:00 14:15:00 JESÚS green [facility] Results This patient has no known results.
--- NOTE | 2021-09-01 13:06 | RAD REPORT ---
EXAM DESCRIPTION: CT - Head Brain Wo Cont - 09/01/2021 12:55 pm CLINICAL HISTORY: DIZZINESS Headache, drowsiness COMPARISON: Head Brain Wo Cont dated 06/20/2016; CT-STROKE BRAIN W/O CONTRAST dated 05/27/2014; Brai n W/Wo Cont dated 12/17/2020 TECHNIQUE: All CT scans are performed using dose optimization technique as appropriate and may inclu de automated exposure control or mA/KV adjustment according to patient size. FINDINGS: No intracranial hemorrhage, hydrocephalus or extra-axial fluid collection.No areas of brai n edema or evidence of midline shift. Slight diminished density in the right superior anterior fronta l region likely related to prior therapy. Calcification in the left frontal lobe is unchanged. The paranasal sinuses and mastoids are clear. Left-sided craniectomy changes noted. IMPRESSION: No acute intracranial abnormality.
[2021-09-01 13:22] LABS: Absolute Lymphocytes (CBC) 0.5 K/uL (0.7-4.9); Hematocrit 31.3 % (36.0-45.0); Lymphocytes % 21.3 % (15.3-44.8); MPV 7.7 fL (7.6-11.3)
--- NOTE | 2021-09-01 13:29 | RAD REPORT ---
EXAM DESCRIPTION: RAD - Chest Single View - 09/01/2021 1:20 pm CLINICAL HISTORY: per md. Stroke work up Chest pain. COMPARISON: Chest Pa And Lat (2 Views) dated 11/17/2017; Chest Single View dated 06/20/2016; Chest Pa And Lat (2 Views) dated 06/02/2016; Chest Pa And Lat (2 Views) dated 05/31/2016 FINDINGS: Portable technique limits examination quality. The lungs are grossly clear. The heart is mildly prominent No displaced fractures.Right axillary diss ection clips. IMPRESSION: No acute intrathoracic process suspected.
[2021-09-01 13:34] LABS: Protime INR 1.16
[2021-09-01 13:44] LABS: ALT/SGPT 15 U/L (12-78); AST/SGOT 20 U/L (15-37); Albumin 3.9 g/dL (3.4-5.0); Alkaline Phosphatase 68 U/L (45-117); BUN Blood Urea Nitrogen 16 mg/dL (7-18); Bicarbonate 30 mmol/L (21-32); Bilirubin Total 0.4 mg/dL (0.2-1.0); Glucose Level 151 mg/dL (74-106); Magnesium 2.2 mg/dL (1.8-2.4); NT PRO-BNP 413 pg/mL (<125); Potassium 3.4 mmol/L (3.5-5.1); Protein, Total 7.4 g/dL (6.4-8.2); Sodium Level 140 mmol/L (136-145)
[2021-09-01 13:46] LABS: Bilirubin Direct < 0.1 mg/dL (0-0.2)
[2021-09-01] MEDS ORDERED: NA CHLORIDE 0.9% 500 ML ONE (13:50)
[2021-09-01] MEDS ORDERED: POTASSIUM CL SA 10 MEQ TAB PO ONE (14:27)
[2021-09-01 15:28] LABS: Blood Morphology Comment NOT SEEN (NOT SEEN); Platelet Estimate ADEQ
--- NOTE | 2021-09-01 15:42 | EDPHYS ---
Physician Documentation [facility] Name: Pauline Campoverde Age: 65 yrs Sex: Female : 1955 Arrival Date: 09/01/2021 Time: 12:27 Bed 23 Private MD: ED Physician Chaya Garcia HPI: 09/01 14:18 This 65 yrs old Female presents to ER via Ambulatory with complaints of Dizziness. ma2 14:18 Associated signs and symptoms: Pertinent negatives: agitation, chest pain, confusion, ma2 focal weakness, head injury, headache, numbness, palpitations, , tingling. Patient has dizziness that she describes as lightheadedness started 3 hours ago constant, she had similar symptoms in the past when she had hypokalemia. Of note patient has breast cancer and she takes chemotherapy last injection was 2 days ago. Patient denies chest pain headache, vomiting. Or any other symptoms.. Historical: - Allergies: 13:15 No Known Allergies; ss7 - PMHx: 13:15 bone cancer; breast cancer; Cellulitis; chemo \T\ radiation; CHF; High Cholesterol; ss7 Hypertension; lymphedema; - PSHx: 13:15 Double Mastectomy; ss7 - Immunization history:: Client reports receiving the 2nd dose of the Covid vaccine. - Social history:: Smoking status: Patient denies any tobacco usage or history of. - Family history:: not pertinent. ROS: 14:18 Constitutional: Negative for fever, chills, and weight loss. ma2 14:18 All other systems are negative. Exam: 14:18 Constitutional: This is a well developed, well nourished patient who is awake, alert, ma2 and in no acute distress. Head/Face: Normocephalic, atraumatic. Eyes: Pupils equal round and reactive to light, extra-ocular motions intact. Lids and lashes normal. Conjunctiva and sclera are non-icteric and not injected. Cornea within normal limits. Periorbital areas with no swelling, redness, or edema. ENT: Nares patent. No nasal discharge, no septal abnormalities noted. Tympanic membranes are normal and external auditory canals are clear. Oropharynx with no redness, swelling, or masses, exudates, or evidence of obstruction, uvula midline. Mucous membranes moist. Neck: Trachea midline, no thyromegaly or masses palpated, and no cervical lymphadenopathy. Supple, full range of motion without nuchal rigidity, or vertebral point tenderness. No Meningismus. Chest/axilla: Normal chest wall appearance and motion. Nontender with no deformity. No lesions are appreciated. Cardiovascular: Regular rate and rhythm with a normal S1 and S2. No gallops, murmurs, or rubs. Normal PMI, no JVD. No pulse deficits. Respiratory: Lungs have equal breath sounds bilaterally, clear to auscultation and percussion. No rales, rhonchi or wheezes noted. No increased work of breathing, no retractions or nasal flaring. Abdomen/GI: Soft, non-tender, with normal bowel sounds. No distension or tympany. No guarding or rebound. No evidence of tenderness throughout. Skin: Warm, dry with normal turgor. Normal color with no rashes, no lesions, and no evidence of cellulitis. MS/ Extremity: Pulses equal, no cyanosis. Neurovascular intact. Full, normal range of motion. Neuro: Awake and alert, GCS 15, oriented to person, place, time, and situation. Cranial nerves II-XII grossly intact. Motor strength 5/5 in all extremities. Sensory grossly intact. Cerebellar exam normal. Normal gait. Vital Signs: 12:28 BP 146 / 63; Pulse 65; Resp 18; Temp 97.4(TE); Pulse Ox 100% on R/A; Weight 79.38 kg; ss Height 5 ft. 4 in. (162.56 cm); Pain 0/10; 14:10 Pulse 61; Resp 20; Pulse Ox 99% on R/A; lr4 15:15 BP 138 / 65; Pulse 67; Resp 18; Pulse Ox 99% ; ss7 12:28 Body Mass Index 30.04 (79.38 kg, 162.56 cm) ss MDM: 14:18 Differential diagnosis: hypovolemia, idiopathic dizziness, near-syncope, , ma2 syncope. Data reviewed: vital signs, nurses notes. Counseling: I had a detailed discussion with the patient and/or guardian regarding: the historical points, exam findings, and any diagnostic results supporting the discharge/admit diagnosis, the presence of at least one elevated blood pressure reading (>120/80) during this emergency department visit, the need for outpatient follow up. Response to treatment: the patient's symptoms have markedly improved after treatment, the patient's symptoms have resolved after treatment. 15:42 Patient medically screened. ma2 09/01 12:31 Order name: Basic Metabolic Panel; Complete Time: 14:16 ss 09/01 12:31 Order name: CBC with Diff ss 09/01 12:31 Order name: LFT's; Complete Time: 14:16 ss 09/01 12:31 Order name: Magnesium; Complete Time: 14:16 09/01 12:31 Order name: NT PRO-BNP; Complete Time: 14:16 09/01 12:31 Order name: PT-INR; Complete Time: 14:16 09/01 12:31 Order name: CT Head Brain wo Cont; Complete Time: 13:18 ss 09/01 12:31 Order name: Troponin HS; Complete Time: 14:16 09/01 12:31 Order name: XRAY Chest (1 view); Complete Time: 14:16 09/01 12:31 Order name: EKG; Complete Time: 12:32 09/01 12:31 Order name: Cardiac monitoring; Complete Time: 13:11 09/01 13:33 Order name: Manual Differential EDMS 09/01 12:31 Order name: EKG - Nurse/Tech; Complete Time: 13:11 09/01 12:31 Order name: IV Saline Lock; Complete Time: 13:11 09/01 12:31 Order name: Labs collected and sent; Complete Time: 13:11 09/01 12:31 Order name: O2 Per Protocol; Complete Time: 13:11 09/01 12:31 Order name: O2 Sat Monitoring; Complete Time: 13:11 ss Administered Medications: 13:53 Drug: NS 0.9% 500 ml Route: IV; Rate: calculated rate; Site: left antecubital; lr4 14:30 Follow up: Response: No adverse reaction; IV Status: Completed infusion 7 14:26 Drug: Potassium Chloride 20 mEq Route: PO; lr4 15:54 Follow up: Response: No adverse reaction ss7 Disposition Summary: 09/01/21 15:42 Discharge Ordered Location: Home ma2 Condition: Stable ma2 Diagnosis - Dizziness and giddiness ma2 Followup: ma2 - With: Private Physician - When: Tomorrow - Reason: If symptoms return Discharge Instructions: - Discharge Summary Sheet ma2 - Dizziness ma2 Forms: - Medication Reconciliation Form ma2 - Thank You Letter ma2 - Antibiotic Education ma2 - Prescription Opioid Use ma2 Signatures: Dispatcher [employer] Isabelle Balderrama RN RN ss Chaya Garcia MD MD ma2 Loren Starr RN RN ss7 Dyan Mendoza RN RN lr4
--- NOTE | 2021-09-01 15:42 | ER ---
Nurse's Notes [facility] Name: Pauline Campoverde Age: 65 yrs Sex: Female : 1955 Arrival Date: 09/01/2021 Time: 12:27 Bed 23 Private MD: Diagnosis: Dizziness and giddiness Presentation: 09/01 12:28 Chief complaint: Patient states: Dizziness x 2 hours. HX of bone CA. Coronavirus ss screen: Client denies travel out of the [place] in the last 14 days. Ebola Screen: Patient denies exposure to infectious person. Patient denies travel to an Ebola-affected area in the 21 days before illness onset. Initial Sepsis Screen: Does the patient meet any 2 criteria? No. Patient's initial sepsis screen is negative. Does the patient have a suspected source of infection? No. Patient's initial sepsis screen is negative. Risk Assessment: Do you want to hurt yourself or someone else? Patient reports no desire to harm self or others. Onset of symptoms was September 01, 2021. 12:28 Method Of Arrival: Ambulatory ss 12:28 Acuity: OMAR 3 ss Historical: - Allergies: 13:15 No Known Allergies; ss7 - PMHx: 13:15 bone cancer; breast cancer; Cellulitis; chemo \T\ radiation; CHF; High Cholesterol; ss7 Hypertension; lymphedema; - PSHx: 13:15 Double Mastectomy; ss7 - Immunization history:: Client reports receiving the 2nd dose of the Covid vaccine. - Social history:: Smoking status: Patient denies any tobacco usage or history of. - Family history:: not pertinent. Screenin:24 Abuse screen: Denies threats or abuse. Nutritional screening: No deficits noted. ss7 Tuberculosis screening: No symptoms or risk factors identified. Fall Risk IV access (20 points). Assessment: 12:50 Reassessment: Care assumed. Pt returning from CT. Ss. ss7 13:12 General: Appears in no apparent distress. Behavior is calm, cooperative, appropriate ss7 for age. Pain: Denies pain. Neuro: No deficits noted. Level of Consciousness is awake, alert, obeys commands, Oriented to person, place, time, situation, [employer] are equal bilaterally Moves all extremities. Gait is steady, Speech is normal. Neuro: Reports dizziness, with bending and standing. States it typically her low potassium. Denies blurred vision difficulty swallowing, headache. Cardiovascular: Reports. Respiratory: No deficits noted. Breath sounds are clear bilaterally. GI: Abdomen is flat, non-distended, Bowel sounds present X 4 quads. Abd is soft and non tender. : No deficits noted. EENT: No deficits noted. Derm: No deficits noted. Musculoskeletal: No deficits noted. Vital Signs: 12:28 BP 146 / 63; Pulse 65; Resp 18; Temp 97.4(TE); Pulse Ox 100% on R/A; Weight 79.38 kg; ss Height 5 ft. 4 in. (162.56 cm); Pain 0/10; 14:10 Pulse 61; Resp 20; Pulse Ox 99% on R/A; lr4 15:15 BP 138 / 65; Pulse 67; Resp 18; Pulse Ox 99% ; ss7 12:28 Body Mass Index 30.04 (79.38 kg, 162.56 cm) ED Course: 12:27 Patient arrived in ED. ss 12:28 Arm band placed on right wrist. ss 12:29 Triage completed. ss 12:31 Chaya Garcia MD is Attending Physician. ma2 12:50 Loren Starr, RN is Primary Nurse. ss7 12:55 CT Head Brain wo Cont In Process Unspecified. EDMS 13:11 Basic Metabolic Panel Sent. ss7 13:11 CBC with Diff Sent. ss7 13:11 LFT's Sent. ss7 13:12 Magnesium Sent. ss7 13:12 NT PRO-BNP Sent. ss7 13:12 PT-INR Sent. ss7 13:12 Troponin HS Sent. ss7 13:20 XRAY Chest (1 view) In Process Unspecified. EDMS 15:24 Patient has correct armband on for positive identification. Bed in low position. Call ss7 light in reach. Side rails up X2. 15:24 Inserted saline lock: 22 gauge in left antecubital area, using aseptic technique. ss7 15:24 No provider procedures requiring assistance completed. ss7 15:55 IV discontinued, intact. ss7 Administered Medications: 13:53 Drug: NS 0.9% 500 ml Route: IV; Rate: calculated rate; Site: left antecubital; lr4 14:30 Follow up: Response: No adverse reaction; IV Status: Completed infusion ss7 14:26 Drug: Potassium Chloride 20 mEq Route: PO; lr4 15:54 Follow up: Response: No adverse reaction ss7 Outcome: 15:42 Discharge ordered by . [email or web address] 15:53 Discharged to home 7 15:53 Condition: good 15:53 Discharge instructions given to patient, Instructed on discharge instructions, follow up and referral plans. Demonstrated understanding of instructions. 15:55 Patient left the ED. 7 Signatures: Dispatcher [employer] EDIsabelle Posada RN RN Chaya Faria MD MD ma2 Loren Starr RN RN 7 Dyan Mendoza RN RN lr4
[2021-09-01 16:26] VITALS: TEMP 97.4
[2021-09-01 16:27] VITALS: O2SAT 99
[2021-09-01 16:29] VITALS: BP 138/65
== END 2021-09-01 15:55 | disposition home or self-care (01) ==
LOC: ER 12:22
DX: R42 Dizziness and giddiness (principal); I10 Essential (primary) hypertension; Z85.3 Personal history of malignant neoplasm of breast; Z85.830 Personal history of malignant neoplasm of bone; Z90.13 Acquired absence of bilateral breasts and nipples
CPT/HCPCS: 93005; 85025; 80048; 36415; 83735; 85610; 80076; 84484; 83880; 70450; 71045; 96360; 99284; J7040

== ENCOUNTER → 2024-04-24 | Day surgery (SDC) | payer OTHER, MEDICARE ==
[~2024-04-24] MED LIST: FENTANYL CITR 100 MCG/2 ML ONE; FLUMAZENIL 0.1 MG/ML (5 mL VIAL) IV ONE; MIDAZOLAM HCL 2 MG/2 ML INJ ONE; NA CHLORIDE 0.9% 1,000 ML ONE; NALOXONE HCL 2 MG/2 ML VIAL ONE
[2024-04-24 07:47] LABS: PT Prothrombin Time 12.7 SECONDS (9.4-12.5); PTT, Activated Partial Thromb 32.8 SECONDS (24.3-36.9); Protime INR 1.14
[2024-04-24 10:57] VITALS: BMI 27.9
[2024-04-24 11:03] VITALS: O2SAT 100
[2024-04-24 11:52] VITALS: TEMP 97
[2024-04-24 11:53] VITALS: BP 145/62
--- NOTE | 2024-04-24 14:09 | RAD REPORT ---
EXAMINATION: CT Bone Biopsy Deep INDICATION: SACRAL BIOPSY Pre-procedure diagnosis: Metastatic breast cancer Post-procedure diagnosis: Same as above. COMPLICATIONS: No immediate complications. PROCEDURE DETAILS: Consent: Informed consent for the procedure was obtained following discussion of the risks, benefits and alternatives with the patient. Time-out was performed prior to the procedure. Sedation: Moderate sedation (conscious sedation) Administered by: Nurse, or other independent traine d observer, with level of consciousness and vital signs continuously monitored. Total sedation administered: 1 mg Versed and 75 mcg Fentanyl. Total intra-service sedation time: 16 minutes. Biopsy: The area was prepped and draped in the usual sterile fashion. Initial scanning revealed a lyt ic lesion involving the right aspect of S2 vertebral body and sacral ala. Local anesthesia was administered. Under CT guidance, an 18 gauge biopsy needle was advanced to the target and biopsy was performed. Number of specimens/passes: 4 Additional sampling description: None. Preliminary assessment of sample adequacy: Not applicable. The biopsy needle was removed and a sterile dressing was applied. Post-biopsy imaging findings: No immediate complications seen. Additional Details: Estimated blood loss: Less than 10 mL. IMPRESSION: Technically successful CT-guided biopsy of right S2 vertebral body lytic lesion.
== END ==
LOC: DS 07:20
PROVIDERS: ATTEND Internal Medicine
DX: C79.51 Secondary malignant neoplasm of bone (principal); C50.411 Malignant neoplasm of upper-outer quadrant of right female breast; D61.810 Antineoplastic chemotherapy induced pancytopenia; G62.0 Drug-induced polyneuropathy
CPT/HCPCS: 20225; 36415; 85610; 85730; 88305; J2250; J2310; J3010; J7030